=== PATIENT | female | born 1945 | race Caucasian/White ===

== ENCOUNTER → 2017-05-10 | Outpatient (CLI) | payer MEDICARE, OTHER | END | disposition home or self-care (01) | LOC: LAB 13:00 | DX: E34.0 Carcinoid syndrome (principal) | CPT/HCPCS: 36415 ==

== ENCOUNTER → 2017-06-05 | Outpatient (CLI) | payer MEDICARE, OTHER ==
[~2017-06-05] MED LIST: ALBU2.5V14 NEB; ALBU8.5H8 INH; AMLO10TA2 PO; ASPI325T8 PO; ATEN25TA PO; DIGO250T PO; FLUT1DIS IH; FURO-68 PO; IOHEXOL 240 MG/ML 50ML VIAL. PO ONE; LEVO75TA5 PO; POTA20TA82 PO; SIMV40TA3 PO; WARF-78 PO; WARF4TAB7 PO
--- NOTE | 2017-06-05 12:27 | RAD ---
Examination: CT chest abdomen pelvis without contrast History: History of right lower quadrant abdominal pain, history of carcinoid Comparison: 11/16/2008 Technique: CT images of the chest abdomen pelvis were performed without contrast. Coronal and sagittal reformats are performed. PQRS Compliance Statement: One or more of the following individualized dose reduction techniques were utilized for this examination: 1. Automated exposure control 2. Adjustment of the mA and/or kV according to patient size 3. Use of iterative reconstruction technique. Findings: Moderate cardiomegaly. Coronary artery calcifications identified. Subcentimeter mediastinal lymph nodes are identified. There is a 8 mm nodule identified in the right upper lobe of the lung best visualized on series 2 image #11. There is moderate consolidation changes identified in the right upper lobe of the lung inferiorly with the air bronchograms with patchy airspace opacities identified in the right upper lobe, right lower lobe of the lungs. There is somewhat mild thinning of the bronchial branches to the right upper lobe of the lung. Foci of fall airspace opacities identified in the right lower lobe of the lung measuring 1.5 cm and in the right upper lobe of the lung measuring 1.5 cm demonstrates somewhat minimal irregular borders. Mild thickening of the right lung pleura at its base. Faint airspace opacities identified in the left upper lobe of the lung. No evidence of free air identified in the abdomen. The visualized noncontrasted liver, demonstrates mild hepatomegaly. The visualized spleen, adrenals grossly appears unremarkable. The stomach is mildly distended. The visualized pancreas grossly appears unremarkable. The small bowel is nondilated. Feces and gas noted in the colon. Multiple sigmoid colon diverticulosis. Mild aortic atherosclerosis. Moderate degenerative changes thoracic spine. There is a 1.1 cm tiny density identified in the inferior aspect of the anterior portion of the right kidney measuring 32 Hounsfield units could be hyperdense cyst or lesion. Evaluation of the solid organs is limited due to lack of IV contrast. Impression: 1. Right upper lobe lung consolidation with air bronchograms with patchy airspace opacities identified in the right upper lobe, right lower lobe and in the left upper lobe of the lung as described above likely pneumonia or atelectasis. Other possibility for the right upper lobe consolidation could be postobstructive atelectasis. Correlate clinically. Follow-up to resolution. 2. 8 mm nodule identified in the right upper lobe of the lung best visualized on series 2 image #11. Follow-up per Vickie[employer]ner Society guidelines with the follow-up CT in 3-6 months. 3. Multiple sigmoid colon diverticula. 4. 1.1 cm density identified in the right kidney anteriorly into the inferior portion could be a hyperdense cyst. Follow-up ultrasound can be considered.
== END | disposition home or self-care (01) ==
LOC: CT 09:00
PROVIDERS: ATTEND Internal Medicine Critical Care Medicine
DX: K57.30 Diverticulosis of large intestine without perforation or abscess without bleeding (principal); I70.0 Atherosclerosis of aorta; R91.8 Other nonspecific abnormal finding of lung field
CPT/HCPCS: 71250; 74176; Q9966

== ENCOUNTER → 2017-08-25 | Outpatient (CLI) | payer MEDICARE, OTHER | END | disposition home or self-care (01) | LOC: CT 11:06 | DX: I25.10 Atherosclerotic heart disease of native coronary artery without angina pectoris (principal); I51.7 Cardiomegaly; N64.89 Other specified disorders of breast; R91.8 Other nonspecific abnormal finding of lung field | CPT/HCPCS: 71250 ==

== ENCOUNTER 2017-09-29 22:38 | Emergency (ER) | payer MEDICARE, OTHER | END 2017-09-30 00:42 | disposition home or self-care (01) | LOC: ER 09-30 00:42 | DX: S00.03XA Contusion of scalp, initial encounter (principal); I48.91 Unspecified atrial fibrillation; J45.909 Unspecified asthma, uncomplicated; I27.20 Pulmonary hypertension, unspecified; M32.9 Systemic lupus erythematosus, unspecified; Z79.01 Long term (current) use of anticoagulants; Z88.0 Allergy status to penicillin; Z88.2 Allergy status to sulfonamides; Z88.6 Allergy status to analgesic agent; Z88.8 Allergy status to other drugs, medicaments and biological substances; W07.XXXA Fall from chair, initial encounter; Y93.84 Activity, sleeping; Y99.8 Other external cause status; Y92.89 Other specified places as the place of occurrence of the external cause | CPT/HCPCS: 70450; 99284-25 ==

== ENCOUNTER → 2018-04-18 | Outpatient (CLI) | payer MEDICARE, OTHER ==
[2017-12-23 12:09] VITALS: BP 157/67
[~2018-04-18] MED LIST changes: -AMLO10TA2 PO; +AMLO10TA6 PO; -IOHEXOL 240 MG/ML 50ML VIAL. PO ONE; +MULT1TAB52 PO; +VITAMIND PO; +WARF2.5T83 PO; +WARF2TAB PO; +WARF4TAB64 PO; -WARF4TAB7 PO
--- NOTE | 2018-04-18 15:31 | RAD ---
DATE: April 18, 2018 EXAM: MAMMO JERED DIAG BILAT, BREAST LEFT SONOGRAM HISTORY: History of left breast lump. Patient had bruising of the left breast 6 months ago but the lump has remained even though the bruising has cleared. Patient is on Coumadin. COMPARISON: March 04, 2011 This study was interpreted with the benefit of Computerized Aided Detection (CAD). 2-D digital mammographic views of both breasts were performed in the CC and MLO projections. 3-D digital tomosynthesis images of both breasts were performed in the CC and MLO projections and reviewed on a computer workstation. FINDINGS: Breast Density: SCATTERED The breast parenchyma shows scattered fibroglandular densities. Breast parenchyma level B. The right breast is stable. In the area of the palpable lump of the upper-outer quadrant of the left breast marked by a skin marker, an underlying dense asymmetric nodule is present measuring 1.8 cm in size. This is located 3.5 cm from the nipple. No clustering of pleomorphic microcalcifications are evident. Posterior to this nodule, a biopsy clip of the left breast is evident. However, this nodule is new since the previous mammogram. LEFT BREAST SONOGRAPHY: High-resolution sonography of the upper outer quadrant of the left breast was performed. At the 12:00 position 4 cm from the nipple, a bilobed hypoechoic heterogeneous solid nodule is seen measuring 2.2 cm in size with irregular borders. Internal color Doppler flow is evident. Therefore, this does not represent a hematoma. Sonography of the left axillary region was performed and no abnormal lymph node is seen. IMPRESSION: Palpable lump of the left breast corresponds to a 2.2 cm solid irregular nodule. Therefore, ultrasound-guided core biopsy is recommended. Note-I discussed the finding and recommendation for biopsy with the patient after completion of the study on April 18, 2018. I told the patient to call her physician's office for further instructions. In addition, I called the office for Dr. Jojo Irby after completion of the examination on April 18, 2018 and the law office receptionist said she will page the nurse for Dr. Irby. BI-RADS CATEGORY: 5 HIGHLY SUGGESTIVE MALIGNANCY RECOMMENDED FOLLOW-UP: BIO BIOPSY RECOMMENDED PQRS compliance statement: Patient information was entered into a reminder system with a target due date now for the imaging guided procedure. Mammography is a sensitive method for finding small breast cancers, but it does not detect them all and is not a substitute for careful clinical examination. A negative mammogram does not negate a clinically suspicious finding and should not result in delay in biopsying a clinically suspicious abnormality. "Our facility is accredited by the [employer] Mammography Program." The patient's breast density may affect the ability of mammography to detect breast cancer. There are 4 categories of breast density, A, B, C and D. Breast density A means that most of the breast tissue is replaced with adipose tissue and therefore is not dense. Breast density B means that the breast tissue is mildly dense and scattered. Breast density C means that the breast tissue is heterogeneously dense. Breast density D means that the breast tissue is very dense. Breast densities especially C and D may decrease the sensitivity of mammography to detect breast cancer. Therefore, the patient may benefit from 3-D breast mammography (3D breast tomography) as a part of their screening mammogram. Insurance may or may not pay for this additional imaging. The patient's breast density based on today's mammogram is category B.
== END | disposition home or self-care (01) ==
LOC: MAMMO 13:13
PROVIDERS: ATTEND Internal Medicine Hematology & Oncology
DX: D59.1 Other autoimmune hemolytic anemias (principal); N63.21 Unspecified lump in the left breast, upper outer quadrant; R92.8 Other abnormal and inconclusive findings on diagnostic imaging of breast; R76.8 Other specified abnormal immunological findings in serum; E61.1 Iron deficiency
CPT/HCPCS: 76641; 77066; G0279; 77062

== ENCOUNTER → 2018-05-08 | Outpatient (CLI) | payer MEDICARE, OTHER ==
[2017-12-23 12:09] VITALS: BP 157/67
--- NOTE | 2018-05-10 09:08 | PATHOLOGY ---
[facility] Accession Number: [id number] . 01 Material submitted: . LEFT BREAST . 01 Clinical history: . Left breast mass . 02 Diagnosis: Breast tissue, left breast mass needle biopsies: - Fibroadenoma. - Focal scarring of breast with hemosiderin laden macrophages, focal dystrophic calcification, and focal foreign body giant cell reaction. LBQ/05/09/2018 . 02 Comment: There is no evidence of malignancy. (JPM/db; 05/09/2018) . 02 Electronically signed: . Ric Uribe MD, Pathologist NPI- [id number] . 01 Gross description: . The specimen is received in formalin, labeled "Elba Sheehan, left breast mass" are several guerrero-white fibrofatty cores and fragments ranging from 0.2 cm up to 1.5 cm in greatest dimension and measuring 1.5 x 0.6 x 0.1 cm in aggregate. The specimen is entirely submitted in A1-A3. Specimen excised at: 0935 on 05/18/18, placed in formalin: 0940 on 05/18/18, formalin exposure: 14 hours. ([facility]; 05/08/2018) [facility]S . 02 Pathologist provided ICD-10: D24.2 . 02 CPT . 141014 Specimen Comment: A courtesy copy of this report has been sent to Specimen Comment: [phone], , . Specimen Comment: Report sent to , DR DINERO / DR MEJIA Specimen Comment: A duplicate report has been generated due to demographic updates. Performed at: [address], [place] [id number] MD Aron Harknis MD Phone: [phone] Performed at: [address] [id number] MD Ric Uribe MD Phone: [phone]
--- NOTE | 2018-05-11 09:12 | RAD ---
Ultrasound-guided left breast biopsy, 05/08/2018: History: Suspicious breast nodule Previous studies demonstrated a bilobed hypoechoic process at the 12:00 location in the left breast. Under local anesthesia, aseptic conditions and sonographic guidance a total of six 14 gauge core samples were obtained from this lesion via a lateral approach. We targeted both the medial and lateral aspects of this bilobed process. The materials were sent to pathology for evaluation. A biopsy marker was deposited at the biopsy site. Hemostasis was then obtained. Two-view postprocedural mammograms were then performed to document position of the current S-shaped biopsy marker. It lies along the posteromedial margin of the biopsied lesion. Note is made that there is an older cylindrical biopsy marker located just posterior to this process. Reportedly that biopsy yielded findings of a fibroadenoma. The patient tolerated the procedure well and left the department in good condition. The subsequent pathology report indicated the presence of a fibroadenoma. This is considered to be a concordant finding.
== END | disposition home or self-care (01) ==
LOC: US 08:17
PROVIDERS: ATTEND Internal Medicine Hematology & Oncology
DX: D24.2 Benign neoplasm of left breast (principal); L92.3 Foreign body granuloma of the skin and subcutaneous tissue; Z88.0 Allergy status to penicillin; Z88.2 Allergy status to sulfonamides; Z88.8 Allergy status to other drugs, medicaments and biological substances; Z90.710 Acquired absence of both cervix and uterus; Z98.890 Other specified postprocedural states
CPT/HCPCS: 19083; 77065; 88305; C1713; 19081; 76942

== ENCOUNTER 2018-06-17 15:20 | Emergency (ER) | payer MEDICARE, OTHER ==
[~2018-06-17] VITALS: Ht 152.4 cm; Wt 103.4 kg
[2018-06-17] MEDS ORDERED: OXYMETAZOLINE 0.05% NASAL SPRAY 30ML BOTTLE. NS ONE (15:45)
--- NOTE | 2018-06-17 16:12 | PHYS DOC ---
Past Medical History Past Medical History: A-Fib, Anemia, Asthma, Pneumonia, Sinusitis Additional Past Medical Histor: AUTO-IMMUNE DISORDER, LUPUS FACTOR, CARDIO- PULM HTN Past Surgical History: Cholecystectomy, Hysterectomy Additional Past Surgical Histo: HERNIA REPAIR Alcohol Use: None Drug Use: None Adult General Chief Complaint Chief Complaint: NOSEBLEED HPI HPI Patient is a 72 year old female with history of A. fib currently on Coumadin 4.5 mg who presents today complaining of nose bleeding that began around 1:30 PM today. Patient denies any trauma. She states she has history of nosebleeds due to Coumadin, dry air, and multiple other factors. Review of Systems Review of Systems Constitutional: Denies fever or chills [] Eyes: Denies change in visual acuity, redness, or eye pain [] HENT: Reports nose bleeding. Denies nasal congestion or sore throat [] Respiratory: Denies cough or shortness of breath [] Cardiovascular: No additional information not addressed in HPI [] GI: Denies abdominal pain, nausea, vomiting, bloody stools or diarrhea [] : Denies dysuria or hematuria [] Musculoskeletal: Denies back pain or joint pain [] Integument: Denies rash or skin lesions [] Neurologic: Denies headache, focal weakness or sensory changes [] All other systems were reviewed and found to be within normal limits, except as documented in this note. Current Medications Current Medications Current Medications Medications (Trade) Dose Ordered Sig/Carlie Start Time Stop Time Status Last Admin Dose Admin Oxymetazoline HCl (Afrin) 2 spray 1X ONCE 06/17/18 15:45 06/17/18 15:48 DC 06/17/18 16:04 2 SPRAY Allergies Allergies Allergies Coded Allergies Type Severity Reaction Last Updated Verified SAI Inhibitors Allergy Intermediate 06/07/17 Yes NSAIDS (Non-Steroidal Anti-Inflamma Allergy Intermediate 06/07/17 Yes Penicillins Allergy Intermediate 06/07/17 Yes Sulfa (Sulfonamide Antibiotics) Allergy Intermediate 06/07/17 Yes lisinopril Allergy Intermediate 06/07/17 Yes Physical Exam Physical Exam Constitutional: Well developed, well nourished, no acute distress, non-toxic appearance. [] HENT: Normocephalic, atraumatic, bilateral external ears normal, oropharynx moist, no oral exudates, No active bleeding noted on physical exam. Right nasal cavity appears to have redness consistent with recent nosebleed. Left nasal cavity appears normal. Eyes: PERRLA, EOMI, conjunctiva normal, no discharge. [] Neck: Normal range of motion, no tenderness, supple, no stridor. [] Cardiovascular:Heart rate regular rhythm, no murmur [] Lungs & Thorax: Bilateral breath sounds clear to auscultation [] Abdomen: Bowel sounds normal, soft, no tenderness, no masses, no pulsatile masses. [] Skin: Warm, dry, no erythema, no rash. [] Back: No tenderness, no CVA tenderness. [] Extremities: No tenderness, no cyanosis, no clubbing, ROM intact, no edema. [] Neurologic: Alert and oriented X 3, normal motor function, normal sensory function, no focal deficits noted. [] Psychologic: Affect normal, judgement normal, mood normal. [] Current Patient Data Vital Signs Vital Signs Date Time Temp Pulse Resp B/P (MAP) Pulse Ox O2 Delivery O2 Flow Rate FiO2 06/17/18 17:00 58 159/70 (99) 96 Room Air 06/17/18 15:30 98.1 20 98.1 Lab Values Laboratory Tests Test 06/17/18 16:05 White Blood Count 5.5 x10^3/uL (4.0-11.0) Red Blood Count 3.93 x10^6/uL (3.50-5.40) Hemoglobin 10.8 g/dL (12.0-15.5) L Hematocrit 32.2 % (36.0-47.0) L Mean Corpuscular Volume 82 fL (79-100) Mean Corpuscular Hemoglobin 28 pg (25-35) Mean Corpuscular Hemoglobin Concent 34 g/dL (31-37) Red Cell Distribution Width 16.8 % (11.5-14.5) H Platelet Count 206 x10^3/uL (140-400) Neutrophils (%) (Auto) 65 % (31-73) Lymphocytes (%) (Auto) 20 % (24-48) L Monocytes (%) (Auto) 9 % (0-9) Eosinophils (%) (Auto) 4 % (0-3) H Basophils (%) (Auto) 1 % (0-3) Neutrophils # (Auto) 3.6 x10^3uL (1.8-7.7) Lymphocytes # (Auto) 1.1 x10^3/uL (1.0-4.8) Monocytes # (Auto) 0.5 x10^3/uL (0.0-1.1) Eosinophils # (Auto) 0.2 x10^3/uL (0.0-0.7) Basophils # (Auto) 0.1 x10^3/uL (0.0-0.2) Prothrombin Time 22.9 SEC (11.7-14.0) H Prothrombin Time INR 2.1 (0.8-1.1) H PTT 83 SEC (24-38) H Laboratory Tests 06/17/18 16:05 EKG EKG [] Radiology/Procedures Radiology/Procedures [] Course & Med Decision Making Course & Med Decision Making Pertinent Labs and Imaging studies reviewed. (See chart for details) This is a 72-year-old female patient on Coumadin presenting today for nose bleeding that began at 1:30. No active bleeding noted on arrival to the ED, Afrin was sprayed in the nasal cavities. I personally re-evaluated patient after the use of Afrin, no active bleeding was noted. INR is 2.1. Hemoglobin 10.8, hematocrit 32.2, this is around patient's baseline. Vitals temperature 98.1, heart rate 68, respiration 20 on room air, blood pressure 164/73 O2 sats 98%. Patient was discharged to home provided return precautions and discharged in stable condition. She has an appointment for INR tomorrow with her PCP. Her distribution technician is Dr. Kc, patient was provided another distribution technician for follow-up with. Staff Physician Addendum: I was working in the ER during the course of this patient's visit. I was available for consultation as needed, but I was not directly involved in the care of this patient. Dragon Disclaimer Dragon Disclaimer This electronic medical record was generated, in whole or in part, using a voice recognition dictation system. Departure Departure Impression: Primary Impression: Epistaxis Disposition: HOME, SELF-CARE Condition: STABLE Referrals: BECKY MEJIA MD (PCP) SAL GARY MD follow up in the next one week with the provided distribution technician Patient Instructions: Nosebleed, [id number] Additional Instructions: You were evaluated in the emergency room for nose bleeding. Continue following up with your own primary care doctor and distribution technician. Come back to the ED at any point symptoms worsen. OSWALD BASSETT APRN Jun 17, 2018 16:12 DONNA JUNG MD Jun 20, 2018 07:56
[2018-06-17 16:19] LABS: BASO # 0.1 x10^3/uL (0.0-0.2); BASO % 1 % (0-3); EOS # 0.2 x10^3/uL (0.0-0.7); EOS % 4 % (0-3); HEMATOCRIT 32.2 % (36.0-47.0); HEMOGLOBIN 10.8 g/dL (12.0-15.5); LYMPH # 1.1 x10^3/uL (1.0-4.8); LYMPH % 20 % (24-48); MEAN CORPUSCULAR HEMOGLOBIN 28 pg (25-35); MEAN CORPUSCULAR HGB CONC 34 g/dL (31-37); MEAN CORPUSCULAR VOLUME 82 fL (79-100); MONO # 0.5 x10^3/uL (0.0-1.1); MONO % 9 % (0-9); NEUT # 3.6 x10^3uL (1.8-7.7); NEUT % 65 % (31-73); PLATELET COUNT 206 x10^3/uL (140-400); RED BLOOD COUNT 3.93 x10^6/uL (3.50-5.40); RED CELL DISTRIBUTION WIDTH 16.8 % (11.5-14.5); WHITE BLOOD COUNT 5.5 x10^3/uL (4.0-11.0)
[2018-06-17 16:29] LABS: PROTHROMBIN TIME PATIENT 22.9 SEC (11.7-14.0)
[2018-06-17 17:00] VITALS: BP 159/70
== END 2018-06-17 17:00 | disposition home or self-care (01) ==
LOC: ER 15:20
DX: R04.0 Epistaxis (principal); J45.909 Unspecified asthma, uncomplicated; Z90.49 Acquired absence of other specified parts of digestive tract; Z90.710 Acquired absence of both cervix and uterus; Z88.0 Allergy status to penicillin; Z88.8 Allergy status to other drugs, medicaments and biological substances; Z88.2 Allergy status to sulfonamides
CPT/HCPCS: 36415; 85025; 85610; 85730; 99283

== ENCOUNTER → 2018-08-03 | Outpatient (CLI) | payer MEDICARE, OTHER ==
[~2018-08-03] MED LIST changes: +ALBU2.5V8 INH; -ALBU8.5H8 INH; +GADOBUTROL 10 MMOL/10 ML VIAL IV ONE
[2018-08-03 14:04] LABS: CREATININE 0.9 mg/dL (0.6-1.0); GFR 61.7
--- NOTE | 2018-08-03 14:30 | NUR ---
pt monitored by RN during MRI. HR 85, SPo2 95. Pt tolerated well
--- NOTE | 2018-08-03 15:17 | RAD ---
MRI Brain with and without contrast History: Right-sided hearing loss, vertigo Technique: Multiplanar, multi sequential pre and postcontrast MR imaging was performed of the brain. Comparison: None Findings: There is no evidence of recent infarct or cytotoxic edema. The ventricles, sulci, and cisterns are within normal limits in size and configuration. There is no significant midline shift, intraaxial mass effect, or focal abnormal extra-axial fluid collection. There is minimal T2 and FLAIR hyperintense signal abnormality of the supratentorial white matter bilaterally greatest of the parietal lobes and periatrial white matter. There is no nodular parenchymal or leptomeningeal enhancement. There is preservation of the major intracranial flow-voids at the skull base. There is mild cerebral tonsillar ectopia projecting about 4 mm inferior to the foramen magnum. There is no significant abnormality of the pineal gland. There is mostly empty sella, no significant increased CSF signal of the optic nerve sheaths. There has been lens surgery bilaterally. There is mild bilateral ethmoid air cell mucosal thickening. There are small air-fluid levels in the bilateral maxillary sinuses. There is moderate to severe left maxillary sinus mucosal thickening with associated mucous retention cyst, [id number] right maxillary sinus mucosal thickening. There is minimal fluid dependently in the pharynx. The mastoid air cells are aerated. There is preserved marrow signal of the clivus. Poorly evaluated this exam, there is appearance of diffuse decreased T1 signal of the C3 vertebral body without osseous retropulsion, associated enhancement as seen on the limited coronal images through this region. There is no enhancing mass of the cerebellopontine angles or internal auditory canals. There is some subtle relative increased T1 signal associated with the right vestibule as well as near confluence of the semicircular canals, not associated with convincing enhancement and appearance asymmetric with the left. There is a tiny 3 mm focus of nonspecific enhancement left parietal calvarium. Impression: 1. There is paranasal sinus mucosal thickening as stated and also air-fluid levels in the bilateral maxillary sinuses which may be seen with acute sinusitis. 2. Minimal T2 and FLAIR hyperintense abnormality of the supratentorial white matter is probably due to chronic microvascular ischemic disease in a patient of this age. There are small old lacunar infarcts of the bilateral cerebellum greater on the right. There is no abnormal intracranial enhancement. 3. There is mild cerebellar tonsillar ectopia. There is empty sella may be incidental. 4. Poorly characterized on this exam, there is likely edema of the C3 vertebral body with associated enhancement as can be seen with marrow replacing lesion, sequela of recent compression injury less typical at this level although there is mild inferior endplate concavity. There is a tiny focus of nonspecific enhancement of the left parietal calvarium. 5. There is some subtle increased T1 signal associated with right vestibule and near confluence of the semicircular canals not associated with convincing enhancement, consideration of sequela of labyrinthitis as findings asymmetric with the left. Electronically signed by: Gregorio Cline MD (08/03/2018 3:13 PM) [facility]
== END | disposition home or self-care (01) ==
LOC: MRI 13:45
PROVIDERS: ATTEND Otolaryngology
DX: H91.21 Sudden idiopathic hearing loss, right ear (principal); R42 Dizziness and giddiness
CPT/HCPCS: 36415; 70553; 82565; A9585

== ENCOUNTER → 2018-09-17 | Outpatient (CLI) | payer MEDICARE, OTHER ==
[~2018-09-17] MED LIST changes: -AMLO10TA6 PO; +AMLO10TA8 PO; -GADOBUTROL 10 MMOL/10 ML VIAL IV ONE
--- NOTE | 2018-09-17 11:01 | CARD ---
MR#: [id number] Date of Study: 09/17/2018 Ordering Physician: KIM GOLD, Referring Physician: KIM GOLD, Tech: Mary Beltran JUAN ALBERTO APPROVED REPORT EXAM: Two-dimensional and M-mode echocardiogram with Doppler and color Doppler. Other Information Quality : Good Rhythm : Atrial Fibrillation INDICATION Aortic Valve Disease Surgery/Intervention Pacemaker: 2D DIMENSIONS RVDd4.3 (2.9-3.5cm)Left Atrium(2D)4.9 (1.6-4.0cm) IVSd1.5 (0.7-1.1cm)Aortic Root(2D)2.7 (2.0-3.7cm) LVDd4.9 (3.9-5.9cm)LVOT Diameter2.0 (1.8-2.4cm) PWd1.5 (0.7-1.1cm)LVDs3.5 (2.5-4.0cm) FS (%) 29.5 %SV63.5 ml LVEF(%)55.0 (>50%) Aortic Valve AoV Peak Brendan.315.1cm/sAoV VTI66.6cm AO Peak GR.39.7mmHgLVOT Peak Brendan.140.1cm/s AO Mean GR.21mmHgAVA (VMAX)1.46cm2 KENDELL (VTI)1.00tq5AZ P 1/2 Fger951mv Mitral Valve MV E Ufbhxkek202.3cm/sMV DECEL ESOH497fk MV A Eyryajtt06.2cm/sE/A Ratio3.2 Tricuspid Valve TR P. Gwlxluny726vy/sRAP PRZLQMEF80owWr TR Peak Gr.87waBxCYUP92yhYq Pulmonary Vein S1 Dqcowzgr32.1cm/sD2 Fhsmgngt20.4cm/s LEFT VENTRICLE The left ventricle is normal size. There is mild concentric left ventricular hypertrophy. Left ventri harman systolic function is low normal. EF 50% Apical motion consistent with pacemaker activation. Other sanchez, global hypokinesis. RIGHT VENTRICLE The right ventricle is mildly dilated. The right ventricular systolic function is normal. There is a pacemaker lead in the right ventricle. ATRIA The left atrium is mildly dilated. The right atrium is mildly dilated. A pacemaker is seen in the rig ht atrium consistent with history. The interatrial septum is intact with no evidence for an atrial se ptal defect or patent foramen ovale as noted on 2-D or Doppler imaging. AORTIC VALVE The aortic valve is not well visualized but does not appear to be opening normally. Doppler and Color Flow revealed mild aortic regurgitation. Calculated aortic valve area is 1.7 cm2 with maximum pressu re gradient of 40 mmHg and mean pressure gradient of 21 mmHg. Doppler and color-flow analysis reveale d mild aortic stenosis. MITRAL VALVE The mitral valve is calcified but opens well. Posterior mitral annular calcification is mild. There i s no evidence of mitral valve prolapse. There is no mitral valve stenosis. Doppler and Color-flow rev ealed mild mitral regurgitation. TRICUSPID VALVE The tricuspid valve is normal in structure and function. Doppler and Color Flow revealed moderate tri cuspid regurgitation. There is severe pulmonary hypertension. The PA pressure was estimated at 70 mmH g. There is no tricuspid valve stenosis. PULMONIC VALVE The pulmonic valve is not well visualized. Doppler and Color Flow revealed mild pulmonic valvular reg urgitation. There is no pulmonic valvular stenosis. GREAT VESSELS The aortic root is normal in size. The ascending aorta is normal in size. The IVC is dilated and mckenna apses <50% with inspiration. PERICARDIAL EFFUSION There is a trace circumferential pericardial effusion. Critical Notification Critical Value: No <Conclusion> Left ventricle systolic function is low normal. EF 50% Apical motion consistent with pacemaker activation. Otherwise, global hypokinesis. There is a pacemaker lead in the right ventricle. Calculated aortic valve area is 1.7 cm2 with maximum pressure gradient of 40 mmHg and mean pressure g radient of 21 mmHg. Doppler and color-flow analysis revealed mild aortic stenosis. Doppler and Color Flow revealed mild aortic regurgitation. Doppler and Color Flow revealed moderate tricuspid regurgitation. There is severe pulmonary hypertens ion. The PA pressure was estimated at 70 mmHg. Signed by : Kim Gold, Electronically Approved : 09/17/2018 11:00:17
== END | disposition home or self-care (01) ==
LOC: ECHO 07:52
PROVIDERS: ATTEND Internal Medicine Cardiovascular Disease
DX: I08.8 Other rheumatic multiple valve diseases (principal); I27.20 Pulmonary hypertension, unspecified; I48.91 Unspecified atrial fibrillation
CPT/HCPCS: 93306

== ENCOUNTER → 2018-09-21 | Outpatient (CLI) | payer MEDICARE, OTHER ==
--- NOTE | 2018-09-21 09:57 | RAD ---
PQRS Compliance statement: One or more of the following individualized dose reduction techniques were utilized for this examination: 1. Automated exposure control. 2. Adjustment of the mA and/or kV according to patient size. 3. Use of iterative reconstruction technique. Indication:F/U LUNG NODULE PREV SENT TECHNIQUE: CT chest without IV contrast with multiplanar reformats. COMPARISON: 08/25/2017 FINDINGS: Left chest wall cardiac pacer is seen with its leads in the heart. Heart is moderately enlarged in size. No pericardial or pleural effusion. No enlarged axillary or mediastinal adenopathy. Evaluation of hilar lymphadenopathy is limited due to lack of IV contrast. Trace right pleural effusion. Central airways are patent. 4 mm nodule is seen in the right lower lobe (series 3 image 152). Motion artifact is seen limiting optimal evaluation. Stable 3 mm nodule in the left lung apex (series 3 image 54). Visualized noncontrast appearance of the liver, spleen, within normal limits. Stable 1.4 cm nodule in the left adrenal gland compatible with adenoma. Stable partially exophytic 1.5 cm lesion in the posterior interpolar left kidney likely minimally corticated cyst. Attention on follow-up. Stable 1.4 cm nodule in the left lower breast. No suspicious bony lesion. IMPRESSION: Motion artifact in the lungs limiting optimal evaluation. 1. Stable left apical nodule. New right lower lobe nodule. Follow-up CT chest in 6 month recommended. 2. Stable left lower outer quadrant breast nodule. Correlate with mammography. Electronically signed by: Bruce Medina DO (09/21/2018 9:54 AM) [facility]
== END | disposition home or self-care (01) ==
LOC: CT 08:59
PROVIDERS: ATTEND Internal Medicine Critical Care Medicine
DX: R91.1 Solitary pulmonary nodule (principal); R91.8 Other nonspecific abnormal finding of lung field; I51.7 Cardiomegaly
CPT/HCPCS: 71250

== ENCOUNTER 2019-04-07 12:11 | Emergency (ER) | payer MEDICARE, OTHER ==
[~2019-04-07] VITALS: Ht 152.4 cm; Wt 103.4 kg
[2019-04-07 13:00] VITALS: BP 139/65
--- NOTE | 2019-04-07 13:56 | RAD ---
RIBS LEFT AND PA CHEST History: Fall. Pain. Technique: PA view the chest and 2 additional views of the left ribs. Comparison: CT chest September 21, 2018 Findings: Cardiomegaly. Left sided pacemaker, unchanged. No pneumothorax. Patchy right basilar opacity. No pleural effusion. No displaced rib fractures. Impression: 1. Patchy right basilar opacity, most likely subsegmental atelectasis. 2. No displaced rib fractures. 3. Cardiomegaly. Electronically signed by: Rahul Campos DO (04/07/2019 1:53 PM) [facility]
--- NOTE | 2019-04-07 14:07 | RAD ---
CT scan of the head without contrast 04/07/2019 Clinical History: Fall. On Coumadin. Technique: Unenhanced, contiguous, 5 mm axial sections were obtained through the head. One or more of the following individualized dose reduction techniques were utilized for this study: 1. Automated exposure control. 2. Adjustment of the mA and/or kV according to patient size. 3. Use of iterative reconstruction technique. Findings: Comparison study is dated 09/29/2017. There is mild generalized parenchymal atrophy. Areas of decreased attenuation are seen within the periventricular and subcortical white matter of both cerebral hemispheres consistent with areas of mild small vessel ischemic disease. No acute parenchymal abnormality is seen. No extra-axial fluid collection is noted. No skull fracture is seen. Impression: No acute intracranial abnormality is seen. Electronically signed by: Panfilo Araya MD (04/07/2019 2:03 PM) [facility]
--- NOTE | 2019-04-07 14:57 | PHYS DOC ---
Past Medical History Past Medical History: A-Fib, Anemia, Asthma, Pneumonia, Sinusitis Additional Past Medical Histor: AUTO-IMMUNE DISORDER, LUPUS FACTOR, CARDIO-PULM HTN, PACEMAKER,HERNIA,HEART Past Surgical History: Cholecystectomy, Hysterectomy, Other Additional Past Surgical Histo: HERNIA REPAIR Alcohol Use: None Drug Use: None Adult General Chief Complaint Chief Complaint: RIB PAIN [facility] HPI Patient is a 73 year old female with history of atrial fibrillation on Coumadin who presents with complaining of a fall and injury to the chest wall. Patient states she had an accidental fall from a chair because of falling asleep and had a fall from the chair and had the pain and injury to left lateral chest that gradually getting worse. She complaining of shortness of breath when trying to taking deep breaths or cough and rated her pain a moderate pain. Patient states she has history of A. fib and taking Coumadin. Patient denies other injuries and loss of consciousness. Review of Systems Review of Systems Constitutional: Denies fever or chills [] Eyes: Denies change in visual acuity, redness, or eye pain [] HENT: Denies nasal congestion or sore throat [] Respiratory: Denies cough or shortness of breath [] Cardiovascular: No additional information not addressed in HPI [] GI: Denies abdominal pain, nausea, vomiting, bloody stools or diarrhea [] : Denies dysuria or hematuria [] Musculoskeletal: Denies back pain or joint pain [] Integument: Denies rash or skin lesions [] Neurologic: Denies headache, focal weakness or sensory changes [] Endocrine: Denies polyuria or polydipsia [] All other systems were reviewed and found to be within normal limits, except as documented in this note. Allergies Allergies Allergies Coded Allergies Type Severity Reaction Last Updated Verified SAI Inhibitors Allergy Intermediate 06/07/17 Yes NSAIDS (Non-Steroidal Anti-Inflamma Allergy Intermediate 06/07/17 Yes Penicillins Allergy Intermediate 06/07/17 Yes Sulfa (Sulfonamide Antibiotics) Allergy Intermediate 06/07/17 Yes lisinopril Allergy Intermediate 06/07/17 Yes Physical Exam Physical Exam Constitutional: Well developed, well nourished, mild distress, non-toxic appearance. [] HENT: Normocephalic, atraumatic. Eyes: PERRLA, EOMI, conjunctiva normal, no discharge. [] Neck: Normal range of motion, no tenderness, supple, no stridor. [] Cardiovascular: Irregularly irregular rhythm, no murmur [] Lungs & Thorax: Bilateral breath sounds clear to auscultation ,left lateral chest wall tenderness without subcutaneous emphysema or deformity. Abdomen: Bowel sounds normal, soft, no tenderness, no masses, no pulsatile masses. [] Skin: Warm, dry, no erythema, no rash. [] Back: No tenderness, no CVA tenderness. [] Extremities: No tenderness, no cyanosis, no clubbing, ROM intact, no edema. [] Neurologic: Alert and oriented X 3, no focal deficits noted. [] Psychologic: Affect normal, judgement normal, mood normal. [] Current Patient Data Vital Signs Vital Signs Date Time Temp Pulse Resp B/P (MAP) Pulse Ox O2 Delivery O2 Flow Rate FiO2 04/07/19 13:00 98.7 66 17 139/65 (89) 94 Room Air 98.7 EKG EKG EKG interpreted by me. EKG at 1258 showed atrial fibrillation at rate of 59, abnormal left axis deviation, nonspecific intraventricular block, no acute ST and T-wave abnormalities. Radiology/Procedures Radiology/Procedures [][facility] [address] [place] [address] IMAGING REPORT Signed PATIENT: MIGUEL ANGEL OLMOS ACCOUNT: [id number] : 1945 LOCATION: ER AGE: 73 SEX: F EXAM STATUS: REG ER ORD. PHYSICIAN: TINO ACOSTA MD REASON: fall PROCEDURE: RIBS LEFT AND PA CHEST RIBS LEFT AND PA CHEST History: Fall. Pain. Technique: PA view the chest and 2 additional views of the left ribs. Comparison: CT chest September 21, 2018 Findings: Cardiomegaly. Left sided pacemaker, unchanged. No pneumothorax. Patchy right basilar opacity. No pleural effusion. No displaced rib fractures. Impression: 1. Patchy right basilar opacity, most likely subsegmental atelectasis. 2. No displaced rib fractures. 3. Cardiomegaly. Electronically signed by: Rahul Campos DO (04/07/2019 1:53 PM) [facility] DICTATED and SIGNED BY: RAHUL CAMPOS DO DATE: 04/07/19 5568 [facility] [address] [place] [address] IMAGING REPORT Signed PATIENT: MIGUEL ANGEL OLMOS ACCOUNT: [id number] : 1945 LOCATION: ER AGE: 73 SEX: F EXAM STATUS: REG ER ORD. PHYSICIAN: TINO ACOSTA MD REASON: FALL YESTERDAY, HIT HEAD, ON COUMADIN PROCEDURE: CT HEAD WO CONTRAST CT scan of the head without contrast 04/07/2019 Clinical History: Fall. On Coumadin. Technique: Unenhanced, contiguous, 5 mm axial sections were obtained through the head. One or more of the following individualized dose reduction techniques were utilized for this study: 1. Automated exposure control. 2. Adjustment of the mA and/or kV according to patient size. 3. Use of iterative reconstruction technique. Findings: Comparison study is dated 09/29/2017. There is mild generalized parenchymal atrophy. Areas of decreased attenuation are seen within the periventricular and subcortical white matter of both cerebral hemispheres consistent with areas of mild small vessel ischemic disease. No acute parenchymal abnormality is seen. No extra-axial fluid collection is noted. No skull fracture is seen. Impression: No acute intracranial abnormality is seen. Electronically signed by: Panfilo Araya MD (04/07/2019 2:03 PM) [facility] DICTATED and SIGNED BY: PANFILO ARAYA MD DATE: 04/07/19 1403 Course & Med Decision Making Course & Med Decision Making Pertinent Imaging studies reviewed. (See chart for details) Evaluation of patient in ER showed 73-year-old female patient with a fall and injury to chest. Patient had chest wall tenderness without fracture. Patient didn't want to have pain medication for home. I've spoken with the patient and/or caregivers. I've explained the patient's condition, diagnosis and treatment plan based on information available to me at this time. I've answered the patient's and/or caregivers questions and addressed any concerns. The patient and/or caregivers have a good understanding the patient's diagnosis, condition and treatment plan as can be expected at this point. Vital signs have been stabilized. The patient's condition is stable for discharge from the emergency department. The patient will pursue further outpatient evaluation with her primary care provider or other designated consulting physician as outlined in the discharge instructions. Patient and/or caregivers are agreeable to this plan of care and follow-up instructions have been explained in detail. The patient and/or caregivers have received these instructions in written format and expressed understanding of these discharge instructions. The patient and her caregivers are aware that if any significant change in condition or worsening of symptoms should prompt him to immediately return to this of the closest emergency department. If an emergent department is not readily available I would encourage him to call 911. Dragon Disclaimer Dragon Disclaimer This electronic medical record was generated, in whole or in part, using a voice recognition dictation system. Departure Departure Impression: Primary Impression: Chest wall injury Additional Impression: Chronic atrial fibrillation Disposition: HOME, SELF-CARE (at 1456) Condition: STABLE Referrals: BECKY MEJIA MD (PCP) Patient Instructions: Chest Contusion, Chest Wall Pain, Rib Contusion Additional Instructions: Apply ice on the affected area Follow-up with your primary care physician in 3-5 days Return to ER if not getting better Problem Qualifiers Primary Impression: Chest wall injury Encounter type: initial encounter Qualified Codes: S29.9XXA - Unspecified injury of thorax, initial encounter TINO ACOSTA MD Apr 07, 2019 14:57
--- NOTE | 2019-04-08 07:11 | EKG ---
[facility] [address] [place] [address] Test Date: 2019-04-07 Test Time: 12:58:52 Pat Name: MIGUEL ANGEL OLMOS Department: Room: Gender: F Cardio Clinician: : 1945 Requested By: TINO ACOSTA Order Number: [id number] Reading MD: Measurements Intervals Bruce Rate: 58 P: TX: QRS: -67 QRSD: 200 T: 116 QT: 428 QTc: 423 Interpretive Statements ATRIAL FIBRILLATION ABNORMAL LEFT AXIS DEVIATION NON SPECIFIC INTRAVENTRICULAR BLOCK QRS(T) CONTOUR ABNORMALITY CONSISTENT WITH ANTERIOR INFARCT POSSIBLY RECENT CONSISTENT WITH INFERIOR INFARCT POSSIBLY RECENT ABNORMAL ECG No previous ECG available for comparison
== END 2019-04-07 15:11 | disposition home or self-care (01) ==
LOC: ER 12:11
DX: S29.8XXA Other specified injuries of thorax, initial encounter (principal); I48.20 Chronic atrial fibrillation, unspecified; J45.909 Unspecified asthma, uncomplicated; I27.20 Pulmonary hypertension, unspecified; Z95.0 Presence of cardiac pacemaker; Z90.49 Acquired absence of other specified parts of digestive tract; Z90.710 Acquired absence of both cervix and uterus; Z79.01 Long term (current) use of anticoagulants; Z88.8 Allergy status to other drugs, medicaments and biological substances; Z88.0 Allergy status to penicillin; Z88.2 Allergy status to sulfonamides; W07.XXXA Fall from chair, initial encounter; Y93.89 Activity, other specified; Y92.89 Other specified places as the place of occurrence of the external cause; Y99.8 Other external cause status
CPT/HCPCS: 70450; 71101; 93005; 99284

== ENCOUNTER → 2019-05-13 | Outpatient (CLI) | payer MEDICARE, OTHER ==
[~2019-05-13] MED LIST changes: +SIMV40TA18 PO; -SIMV40TA3 PO
--- NOTE | 2019-05-14 13:47 | RAD ---
DATE: 05/13/2019 EXAM: MAMMO JERED SCREENING BILATERAL HISTORY: Routine screening. Benign left breast biopsy. COMPARISON: 03/04/2011, 04/18/2018 mammographic exams This study was interpreted with the benefit of Computerized Aided Detection (CAD). Breast Density: SCATTERED The breast parenchyma shows scattered fibroglandular densities. Breast parenchyma level B. FINDINGS: There are 2 biopsy clip markers involving the left upper-outer breast. No suspicious calcification, masses, or distortion. Vascular calcifications are present. IMPRESSION: Stable BI-RADS CATEGORY: 1 NEGATIVE RECOMMENDED FOLLOW-UP: 12M 12 MONTH FOLLOW-UP PQRS compliance statement: Patient information was entered into a reminder system with a target due date for the next mammogram. Mammography is a sensitive method for finding small breast cancers, but it does not detect them all and is not a substitute for careful clinical examination. A negative mammogram does not negate a clinically suspicious finding and should not result in delay in biopsying a clinically suspicious abnormality. "Our facility is accredited by the [employer] Mammography Program."
== END | disposition home or self-care (01) ==
LOC: MAMMO 12:29
PROVIDERS: ATTEND Internal Medicine Hematology & Oncology
DX: Z12.31 Encounter for screening mammogram for malignant neoplasm of breast (principal); N64.89 Other specified disorders of breast
CPT/HCPCS: 77063; 77067

== ENCOUNTER → 2019-06-06 | Outpatient (CLI) | payer MEDICARE, OTHER ==
[~2019-06-06] MED LIST changes: -DIGO250T PO; +DIGO250T3 PO; +POTA20TA4 PO; -POTA20TA82 PO
--- NOTE | 2019-06-07 08:21 | CARD ---
MR#: [id number] Date of Study: 06/06/2019 Ordering Physician: KIM GOLD, Referring Physician: KIM GOLD, Tech: Mary Beltran JUAN ALBERTO APPROVED REPORT EXAM: Two-dimensional and M-mode echocardiogram with Doppler and color Doppler. Other Information Quality : Good Rhythm : Atrial Fibrillation INDICATION Valvular Heart Disease 2D DIMENSIONS RVDd4.3 (2.9-3.5cm)Left Atrium(2D)5.4 (1.6-4.0cm) IVSd1.2 (0.7-1.1cm)Aortic Root(2D)2.7 (2.0-3.7cm) LVDd5.7 (3.9-5.9cm)LVOT Diameter2.2 (1.8-2.4cm) PWd1.3 (0.7-1.1cm)LVDs4.3 (2.5-4.0cm) FS (%) 17.0 %SV80.9 ml LVEF(%)35.0 (>50%) Aortic Valve AoV Peak Brendan.329.3cm/sAoV VTI70.0cm AO Peak GR.43.4mmHgLVOT Peak Brendan.156.9cm/s AO Mean GR.24mmHgAVA (VMAX)1.83cm2 KENDELL (VTI)1.40pa0XC P 1/2 Iohg112xo Mitral Valve MV E Pwzxxzbt788.7cm/sMV DECEL BABA527lq MV A Zgeenlij60.8cm/sE/A Ratio3.0 Tricuspid Valve TR P. Xkoervim808kd/sRAP XWCZGUWU25fdVy TR Peak Gr.99gcBoKRTN49ufGb Pulmonary Vein S1 Nnwnwkvp52.3cm/sD2 Xzovlxhj14.3cm/s LEFT VENTRICLE The left ventricle is normal size. There is mild concentric left ventricular hypertrophy. Left ventri harman systolic function is moderately to severely impaired. The Ejection Fraction is 30-35%. There is g lobal hypokinesis of the left ventricle. Septal motion suggestive of conduction defect. RIGHT VENTRICLE The right ventricle is moderately dilated. The right ventricular systolic function is normal. There i s a pacemaker lead in the right ventricle. ATRIA The left atrium is moderately dilated. The right atrium is moderately dilated. A pacemaker is seen in the right atrium consistent with history. The interatrial septum is intact with no evidence for an a trial septal defect or patent foramen ovale as noted on 2-D or Doppler imaging. AORTIC VALVE The aortic valve is calcified and displays decreased opening. Doppler and Color Flow revealed moderat e aortic regurgitation. Calculated aortic valve area is 1.9 cm2 with maximum pressure gradient of 44 mmHg and mean pressure gradient of 24 mmHg. Overall, this is consistent with moderate MITRAL VALVE The mitral valve is calcified with restricted posterior leaflet. There is no evidence of mitral valve prolapse. Doppler and Color-flow revealed moderate mitral regurgitation. TRICUSPID VALVE The tricuspid valve is normal in structure and function. Doppler and Color Flow revealed moderate to severe tricuspid regurgitation. There is severe pulmonary hypertension. The PA pressure was estimated at 76 mmHg. There is no tricuspid valve stenosis. PULMONIC VALVE Doppler and Color Flow revealed mild pulmonic valvular regurgitation. There is no pulmonic valvular s tenosis. GREAT VESSELS The aortic root is normal in size. The ascending aorta is normal in size. The IVC is dilated and mckenna apses <50% with inspiration. PERICARDIAL EFFUSION There is no evidence of significant pericardial effusion. Critical Notification Critical Value: No <Conclusion> Left ventricle systolic function is moderately to severely impaired. The Ejection Fraction is 30-35%. There is global hypokinesis of the left ventricle. Septal motion suggestive of conduction defect. The right ventricle is moderately dilated. There is a pacemaker lead in the right ventricle. Calculated aortic valve area is 1.9 cm2 with maximum pressure gradient of 44 mmHg and mean pressure g radient of 24 mmHg. Overall, this is consistent with moderate Doppler and Color-flow revealed moderate mitral regurgitation. Doppler and Color Flow revealed moderate to severe tricuspid regurgitation. There is severe pulmonary hypertension. The PA pressure was estimated at 76 mmHg. The IVC is dilated and collapses <50% with inspiration. Signed by : Kim Gold, Electronically Approved : 06/07/2019 08:20:57
== END ==
LOC: ECHO 12:48
PROVIDERS: ATTEND Internal Medicine Cardiovascular Disease
DX: I08.8 Other rheumatic multiple valve diseases (principal); I27.20 Pulmonary hypertension, unspecified; I11.0 Hypertensive heart disease with heart failure; I50.9 Heart failure, unspecified; E03.9 Hypothyroidism, unspecified; K58.9 Irritable bowel syndrome, unspecified
CPT/HCPCS: 93306

== ENCOUNTER 2019-07-01 07:11 | Day surgery (SDC) | payer MEDICARE, OTHER ==
[~2019-07-01] VITALS: Ht 152.4 cm; Wt 93.0 kg
[~2019-07-01 07:11] MED LIST changes: +HYDROmorphone 2 MG/ML VIAL IV PRN; +IV RINGERS,LACTATED 1000ML 1,000 ML IV SCH; +LIDOCAINE 1% PF 2 ML VIAL. ID PRN; +MORPHINE SULFATE 2 MG/ML VIAL. IV PRN; +ONDANSETRON PF 4 MG/2 ML VIAL. IV PRN; +PROCHLORPERAZINE 10 MG/2 ML VIAL. IV PRN; +fentaNYL PF VIAL 100 MCG/2 ML VIAL IV PRN
[2019-07-01] MEDS ORDERED: IODIXANOL 320 MG/ML 100 ML VIAL. ONE (07:31)
[2019-07-01] MEDS ORDERED: LIDOCAINE 1% Multi-Dose 20 ML VIAL. ONE (07:31)
[2019-07-01] MEDS ORDERED: HEPARIN for ARTERIAL LINE 1,500 ML ONE (07:32)
[2019-07-01 07:34] LABS: HEMATOCRIT 32.7 % (36.0-47.0); HEMOGLOBIN 10.4 g/dL (12.0-15.5); RED CELL DISTRIBUTION WIDTH 16.6 % (11.5-14.5); WHITE BLOOD COUNT 4.9 x10^3/uL (4.0-11.0)
[2019-07-01 07:46] LABS: CALCIUM 9.1 mg/dL (8.5-10.1); GFR 54.5; POTASSIUM 4.2 mmol/L (3.5-5.1)
[2019-07-01 07:48] LABS: PROTHROMBIN TIME PATIENT 15.7 SEC (11.7-14.0)
[2019-07-01 08:10] VITALS: BP 159/83
[2019-07-01] MEDS ORDERED: FOLI0.8C PO (08:49)
[2019-07-01] MEDS ORDERED: CHOL400T6 PO (08:49)
[2019-07-01] MEDS ORDERED: ASCO500C PO (08:49)
[2019-07-01] MEDS ORDERED: FLUT1DIS3 IH (08:49)
[2019-07-01] MEDS ORDERED: OXYM30SP25 NS (08:49)
[2019-07-01] MEDS ORDERED: VITA1TAB60 PO (08:49)
[2019-07-01] MEDS ORDERED: FERR-36 PO (08:49)
[2019-07-01] MEDS ORDERED: VERAPAMIL 5 MG/2 ML VIAL. ONE (08:50)
[2019-07-01] MEDS ORDERED: MIDAZOLAM HCL/PF 2 MG/2 ML VIAL. ONE (08:50)
[2019-07-01] MEDS ORDERED: fentaNYL PF VIAL 100 MCG/2 ML VIAL ONE (08:50)
[2019-07-01] MEDS ORDERED: HEPARIN for IV BOLUS 10,000 UNIT/10 ML VIAL. ONE (08:50)
[2019-07-01] MEDS ORDERED: NITROGLYCERIN 200 MCG/2 ML SYRINGE FOR CATH/VASC LAB. ONE (08:50)
--- NOTE | 2019-07-01 08:52 | PDOC ---
MODERATE SEDATION ASSESSMENT RISKS/ALTERNATIVES Risks/Alternatives Risks and alternatives of this type of sedation and procedure discussed with: RISK/ALTERNATIVES: Patient H & P ON CHART H & P H & P on chart and reviewed for co-morbid conditions and appropriate labs. H&P ON CHART: Yes STATUS PREG STATUS ASSESSED: N/A MEDS/ALLERGIES REVIEWED Meds/Allergies Reviewed Medications and Allergies including time and route of recently administered narcotics and sedatives. MEDS/ALLERGIES REVIEWED: Yes ASA RATING ASA RATING: III AIRWAY ASSESSMENT Airway Assessment Airway patency, oral function limitations, presence of caps, crowns, dentures, partials, and ability to extend neck assessed. AIRWAY ASSESSMENT: Yes MALLAMPATI SCORE MALLAMPATI SCORE: II PRE-SEDATION ASSESSMENT PRE-SEDATION ASSESSMENT: Yes KIM GOLD MD Jul 01, 2019 08:52
[2019-07-01] MEDS ORDERED: IODIXANOL 320 MG/ML 100 ML VIAL. IART ONE (09:15)
[2019-07-01] MEDS ORDERED: LIDOCAINE 1% PF 2 ML VIAL. INJ ONE (09:15)
[2019-07-01] MEDS ORDERED: VERAPAMIL 5 MG/2 ML VIAL. IART ONE (09:15)
[2019-07-01] MEDS ORDERED: CONTRAST GIVEN. MC PRN (09:15)
[2019-07-01] MEDS ORDERED: MIDAZOLAM HCL/PF 2 MG/2 ML VIAL. IV ONE (09:15)
[2019-07-01] MEDS ORDERED: fentaNYL PF VIAL 100 MCG/2 ML VIAL IV ONE (09:15)
[2019-07-01] MEDS ORDERED: NITROGLYCERIN 200 MCG/2 ML SYRINGE FOR CATH/VASC LAB. IART ONE (09:15)
[2019-07-01] MEDS ORDERED: HEPARIN for IV BOLUS 10,000 UNIT/10 ML VIAL. IART ONE (09:15)
[2019-07-01] MEDS ORDERED: PROPOFOL 20 ML IV ONE (09:26)
[2019-07-01 09:56] VITALS: BP 141/69
--- NOTE | 2019-07-01 10:37 | CARD ---
MR#: [id number] Date of Study: 07/01/2019 Ordering Physician: KIM GOLD, Referring Physician: KIM GOLD, Tech: MEGAN TOMPKINS RTR APPROVED REPORT Technologist: MEGAN TOMPKINS RTR Nurse: MATTHEW ALVARENGA RN Procedure(s) performed: MODERATE SEDATION TIME: 34 MIN FLUORO TIME: 6.6 MIN DOSE: 53.7 GYCM2 CONTRAST: 65 CC VISI LHC, Coronary angiography HISTORY The patient is a 73 year-old female with a history of : hypertension, dyslipidemia. INDICATION The indication(s) include : dyspnea, valvular heart disease. [facility] Clinical Frailty Scale [facility] Clinical Frailty Scale: Severely Frail Heart Failure Heart Failure: Yes If Yes, Newly Diagnosed: No If Yes, HF Type: Diastolic If Yes, NYHA Class: Class II PROCEDURE NARRATIVE INFORMED CONSENT: After explaining the risks and benefits of the procedure and alternatives, informed consent was obtained. The patient was brought electively to the cardiac catheterization lab. A timeout was performed confi rming the patient's name, date of , procedure, and site of procedure. All necessary personnel w ere wearing the appropriate protective equipment and radiation monitor devices. (See nursing notes for medications administered). ACCESS: The right wrist was sterilely prepped and draped in the usual fashion. The right wrist was infiltrat ed with 1 mL of 2% lidocaine for subcutaneous anesthesia. A 6 Tajik Terumo glide sheath was inserte d into the right radial artery without difficulty. CORONARY ANGIOGRAPHY: Right and left coronary angiography was performed using a 5Fr TIG 4.0 catheter and a 5Fr JR4 cathete r. Left ventricular end diastolic pressure was obtained with a TIG catheter and pullback was perform ed. All catheter exchanges and advancements were performed over a guidewire. CLOSURE: At case completion the right radial sheath was removed and a Terumo radial band was applied with 13 m l of air. COMPLICATIONS: The patient tolerated the procedure well and there were no immediate complications. FINDINGS: HEMODYNAMICS: LVEDP 22 mm Hg 25 mm Hg peak to peak gradient on pullback from the LV to aorta. AO: 128/78 LEFT VENTRICULOGRAM: Deferred due to renal insufficiency. CORONARY ANGIOGRAPHY: LM is a large caliber vessel with normal angiographic appearance. LAD is a large caliber vessel with normal angiographic appearance. D1 is a moderate caliber vessel with normal angiographic apeparance. LCx is a moderate caliber non-dominant vessel with a mid 20% stenosis. OM1 is a moderate caliber vessel with normal angiographic appearance. RCA is a large caliber dominant vessel with normal angiographic appearance. RPDA and RPL are moderate caliber vessels with normal angiographic appearance. Conclusion 1. Elevated left sided filling pressures. (LVEDP 22 mm Hg) 2. No significant coronary disease. Recommendations Aggressive Medical Therapy Signed by : Kim Gold, Electronically Approved : 07/01/2019 10:37:21
[2019-07-01] MEDS ORDERED: IV NORMAL SALINE 1000ML BAG 1,000 ML IV ONE (11:15)
[2019-07-01 13:15] VITALS: BP 136/37
--- NOTE | 2019-07-01 13:21 | CARD ---
MR#: [id number] Date of Study: 07/01/2019 Ordering Physician: KIM GOLD, Referring Physician: KIM GOLD Tech: Ginny Carlin RDCS APPROVED REPORT EXAM: Transesophageal echocardiogram with color flow Doppler. INDICATION Arrhythmia Dyspnea Reason For Test : Evaluate valvular disease. PROCEDURE After obtaining informed consent, patient underwent transesophageal echo in the [employer] Qualified. Type of Sedation : General Anesthesia Transesophageal probe was inserted and advanced into esophagus by Brian Gold MD. The BING was performed without complications. Throughout the procedure, the blood pressure, pulse oximetry, cardiac rhythm, and rate were monitored . The patient tolerated the procedure without adverse effects. Recovery from general anesthesia was une ventful and vital signs were stable. LEFT VENTRICLE The left ventricle is normal size. There is mild concentric left ventricular hypertrophy. The systoli c function is moderately impaired. The Ejection Fraction is 30-35%. There is global hypokinesis of th e left ventricle. No left ventricle thrombus noted on this study. There is no ventricular septal defe ct visualized. RIGHT VENTRICLE The right ventricle is normal size. There is normal right ventricular wall thickness. RV Systolic fun ction is mildly reduced. ATRIA The left atrium is moderately dilated. The right atrium is severely dilated. The interatrial septum i s intact with no evidence for an atrial septal defect or patent foramen ovale as noted on 2-D or Dopp ler imaging. AORTIC VALVE The aortic valve is trileaflet. The aortic valve is moderately calcified. Doppler and Color Flow reve aled trace to mild aortic regurgitation. There is mild to moderate valvular aortic stenosis. MG 20 mm Hg. MITRAL VALVE Mitral annular calcification is moderate. There is no evidence of mitral valve prolapse. There is no mitral valve stenosis. Doppler and Color-flow revealed moderate mitral regurgitation. TRICUSPID VALVE The tricuspid valve leaflets are thickened and calcified, but open well. Doppler and Color Flow revea led moderate to severe tricuspid regurgitation. RVSP of 50 mm Hg. There is no tricuspid valve prolaps e or vegetation. There is no tricuspid valve stenosis. PULMONIC VALVE The pulmonary valve is normal in structure and function. Doppler and Color Flow revealed no pulmonic valvular regurgitation. There is no pulmonic valvular stenosis. GREAT VESSELS The aortic root is normal in size. Normal left lower pulmonary vein. No significant pulmonary vein fl ow reversal. The IVC is normal in size and collapses >50% with inspiration. PERICARDIAL EFFUSION There is no pleural effusion. Critical Notification Critical Value: No <Conclusion> The systolic function is moderately impaired. The Ejection Fraction is 30-35%. There is global hypokinesis of the left ventricle. The right atrium is severely dilated. The left atrium is moderately dilated. There is mild to moderate valvular aortic stenosis. MG 20 mm Hg. Doppler and Color-flow revealed moderate mitral regurgitation. Doppler and Color Flow revealed moderate to severe tricuspid regurgitation. RVSP of 50 mm Hg. Signed by : Kim Gold, Electronically Approved : 07/01/2019 13:21:29
== END 2019-07-01 14:15 | disposition home or self-care (01) ==
LOC: CCL 07:11
PROVIDERS: ATTEND Internal Medicine Cardiovascular Disease
DX: R06.00 Dyspnea, unspecified (principal); I25.10 Atherosclerotic heart disease of native coronary artery without angina pectoris; I08.1 Rheumatic disorders of both mitral and tricuspid valves; E78.5 Hyperlipidemia, unspecified; I11.9 Hypertensive heart disease without heart failure
CPT/HCPCS: 36415; 80048; 85027; 85610; 93312; 93320; 93325; 93458; 99152; 99153; C1769; C1892; J1644; J2250; J2704; J3010; J3490; J7030; Q9967

== ENCOUNTER → 2019-08-27 | Outpatient (CLI) | payer MEDICARE, OTHER ==
[~2019-08-27] MED LIST changes: +ASCO500C PO; +CHOL400T6 PO; +FERR-36 PO; +FLUT1DIS3 IH; +FOLI0.8C PO; -HYDROmorphone 2 MG/ML VIAL IV PRN; -IV RINGERS,LACTATED 1000ML 1,000 ML IV SCH; -LIDOCAINE 1% PF 2 ML VIAL. ID PRN; -MORPHINE SULFATE 2 MG/ML VIAL. IV PRN; -ONDANSETRON PF 4 MG/2 ML VIAL. IV PRN; +OXYM30SP25 NS; -PROCHLORPERAZINE 10 MG/2 ML VIAL. IV PRN; +VITA1TAB60 PO; -fentaNYL PF VIAL 100 MCG/2 ML VIAL IV PRN
[2019-08-27 09:55] LABS: CALCIUM 9.1 mg/dL (8.5-10.1); CREATININE 0.9 mg/dL (0.6-1.0); GFR 61.5; POTASSIUM 4.3 mmol/L (3.5-5.1)
== END | disposition home or self-care (01) ==
LOC: LAB 09:13
PROVIDERS: ATTEND Internal Medicine Cardiovascular Disease
DX: I42.8 Other cardiomyopathies (principal)
CPT/HCPCS: 36415; 80048; 83880

== ENCOUNTER → 2019-11-12 | Outpatient (CLI) | payer MEDICARE, OTHER ==
--- NOTE | 2019-11-12 13:55 | RAD ---
EXAM: CT OF THE CHEST WITHOUT CONTRAST. HISTORY: Lung nodule. TECHNIQUE: Computed tomography of the chest was performed without intravenous contrast. One or more of the following individualized dose reduction techniques were utilized for this examination: 1. Automated exposure control. 2. Adjustment of the mA and/or kV according to patient size. 3. Use of iterative reconstruction technique. COMPARISON: 09/21/2018. FINDINGS: Images of the upper abdomen reveal no acute abnormality. Bone windows reveal no suspicious lesions. There are no pathologically enlarged mediastinal or axillary lymph nodes. There is no pleural or pericardial effusion. The heart is moderately to severely enlarged. There are calcifications of the coronary arteries and aortic valve. The main pulmonary artery measures 4.5 cm. A 5 mm groundglass nodule on image 55 in the left upper lobe appears new and is likely inflammatory. Other tiny nodules in the left upper lobe measures 3 mm or less. An uncalcified nodule in the right lower lobe on image 153 is stable and measures 5 mm. Mild septal line thickening is consistent with trace pulmonary edema. IMPRESSION: 1. A 5 mm groundglass nodule in the left upper lobe on image T5 is new but likely inflammatory. This could be followed in 6-12 months. 2. Other nodules measuring 5 mm or less are stable and likely benign. 3. Moderate to severe cardiomegaly with evidence of pulmonary arterial hypertension. Trace pulmonary edema. Electronically signed by: Jadyn Rodriguez MD (11/12/2019 1:52 PM) [id number]
== END | disposition home or self-care (01) ==
LOC: CT 12:30
PROVIDERS: ATTEND Internal Medicine Critical Care Medicine
DX: R91.8 Other nonspecific abnormal finding of lung field (principal); I27.21 Secondary pulmonary arterial hypertension; I11.9 Hypertensive heart disease without heart failure; I25.10 Atherosclerotic heart disease of native coronary artery without angina pectoris; J45.909 Unspecified asthma, uncomplicated; Z95.0 Presence of cardiac pacemaker
CPT/HCPCS: 71250

== ENCOUNTER 2020-02-10 18:11 | Emergency (ER) | payer MEDICARE, OTHER ==
[~2020-02-10] VITALS: Ht 152.4 cm; Wt 86.4 kg
[~2020-02-10 18:11] MED LIST changes: +MULT-445 PO; -MULT1TAB52 PO; -WARF-78 PO; +WARF2.5T2 PO; -WARF2.5T83 PO; +WARF5TAB2 PO
[2020-02-10] MEDS ORDERED: dilTIAZem IV PUSH 25 MG/5 ML VIAL IVP ONE (18:45)
--- NOTE | 2020-02-10 18:52 | PHYS DOC ---
Past Medical History Past Medical History: A-Fib, Anemia, Asthma, Pneumonia, Sinusitis Additional Past Medical Histor: AUTO-IMMUNE DISORDER, LUPUS FACTOR, CARDIO-PULM HTN, PACEMAKER,HERNIA,HEART Past Surgical History: Cholecystectomy, Hysterectomy, Other Additional Past Surgical Histo: HERNIA REPAIR Smoking Status: Never Smoker Alcohol Use: None Drug Use: None General Adult EDM: Chief Complaint: NOSEBLEED HPI: HPI: Patient is a 74 year old female who presents with bleeding in her mouth that began about an 30 minutes prior to arrival. Patient is on Coumadin for atrial fibrillation and had aortic valve replacement approximately a month ago. Patient denies any recent illnesses no fevers cough but states that when she is clearing her throat she spat up blood. And she has been spitting up blood every 4 to 5 minutes. Patient states it does not feel it is coming from her nose rather coming from her sinuses. Patient denies any shortness of breath but is very anxious. Review of Systems: Review of Systems: Constitutional: Denies fever or chills. [] Eyes: Denies change in visual acuity. [] HENT: Complains of blood from her mouth Respiratory: Denies cough or shortness of breath. [] Cardiovascular: Denies chest pain or edema. [] GI: Denies abdominal pain, nausea, vomiting, bloody stools or diarrhea. [] : Denies dysuria. [] Musculoskeletal: Denies back pain or joint pain. [] Integument: Denies rash. [] Neurologic: Denies headache, focal weakness or sensory changes. [] Endocrine: Denies polyuria or polydipsia. [] Lymphatic: Denies swollen glands. [] Psychiatric: Denies depression or anxiety. [] Heart Score: Risk Factors: Risk Factors: DM, Current or recent (<one month) smoker, HTN, HLP, family history of CAD, obesity. Risk Scores: Score 0 - 3: 2.5% MACE over next 6 weeks - Discharge Home Score 4 - 6: 20.3% MACE over next 6 weeks - Admit for Clinical Observation Score 7 - 10: 72.7% MACE over next 6 weeks - Early Invasive Strategies Current Medications: Current Medications Medications (Trade) Dose Ordered Sig/Carlie Start Time Stop Time Status Last Admin Dose Admin Diltiazem HCl (Cardizem Iv Push) 15 mg 1X ONCE 02/10/20 18:45 02/10/20 18:47 DC Allergies: Allergies: Allergies Coded Allergies Type Severity Reaction Last Updated Verified SAI Inhibitors Allergy Intermediate 06/07/17 Yes NSAIDS (Non-Steroidal Anti-Inflamma Allergy Intermediate 06/07/17 Yes Penicillins Allergy Intermediate 06/07/17 Yes Sulfa (Sulfonamide Antibiotics) Allergy Intermediate 06/07/17 Yes lisinopril Allergy Intermediate 06/07/17 Yes Physical Exam: PE: Constitutional: Well developed, well nourished, anxious HENT: Normocephalic, atraumatic blood in oropharynx. No active bleeding seen from the naris. Eyes: PERRLA, EOMI, conjunctiva normal, no discharge. [] Neck: Normal range of motion, no tenderness, supple, no stridor. [] Cardiovascular: Tachycardia irregularly irregular peripheral pulses intact mechanical heart sounds Lungs & Thorax: Bilateral breath sounds clear to auscultation [] Abdomen: Bowel sounds normal, soft, no tenderness, no masses, no pulsatile masses. [] Skin: Warm, dry, no erythema, no rash. [] Back: No tenderness, no CVA tenderness. [] Extremities: No tenderness, no cyanosis, no clubbing, ROM intact, no edema. [] Neurologic: Alert and oriented X 3, normal motor function, normal sensory function, no focal deficits noted. [] Psychologic: Affect normal, judgement normal, mood normal. [] Current Patient Data: Labs: Laboratory Tests Test 02/10/20 19:05 White Blood Count 4.9 x10^3/uL Red Blood Count 3.60 x10^6/uL Hemoglobin 10.3 g/dL Hematocrit 30.8 % Mean Corpuscular Volume 86 fL Mean Corpuscular Hemoglobin 29 pg Mean Corpuscular Hemoglobin Concent 34 g/dL Red Cell Distribution Width 20.4 % Platelet Count 176 x10^3/uL Neutrophils (%) (Auto) 56 % Lymphocytes (%) (Auto) 28 % Monocytes (%) (Auto) 10 % Eosinophils (%) (Auto) 5 % Basophils (%) (Auto) 1 % Neutrophils # (Auto) 2.7 x10^3/uL Lymphocytes # (Auto) 1.4 x10^3/uL Monocytes # (Auto) 0.5 x10^3/uL Eosinophils # (Auto) 0.2 x10^3/uL Basophils # (Auto) 0.0 x10^3/uL Platelet Estimate Adequate Polychromasia Slight Poikilocytosis Slight Basophilic Stippling Present Anisocytosis Mod Spherocytes Few Target Cells Tear Drop Cells Occ Ovalocytes Mod Prothrombin Time 27.7 SEC Prothromb Time International Ratio 2.6 Sodium Level 143 mmol/L Potassium Level 4.2 mmol/L Chloride Level 107 mmol/L Carbon Dioxide Level 25 mmol/L Anion Gap 11 Blood Urea Nitrogen 36 mg/dL Creatinine 1.2 mg/dL Estimated GFR (Cockcroft-Gault) 44.0 Glucose Level 105 mg/dL Calcium Level 8.8 mg/dL Current Medications Medications (Trade) Dose Ordered Sig/Carlie Route PRN Reason Start Time Stop Time Status Last Admin Dose Admin Diltiazem HCl (Cardizem Iv Push) 15 mg 1X ONCE IVP 02/10/20 18:45 02/10/20 18:55 DC Oxymetazoline HCl (Afrin) 2 spray 1X ONCE NS 02/10/20 20:00 02/10/20 20:01 DC 02/10/20 20:06 Tranexamic Acid (Cyklokapron) 1,000 mg 1X ONCE TOP 02/10/20 20:00 02/10/20 20:01 DC 02/10/20 20:06 Vital Signs: Vital Signs Date Time Temp Pulse Resp B/P (MAP) Pulse Ox O2 Delivery O2 Flow Rate FiO2 02/10/20 20:39 94 20 99 02/10/20 20:09 103 15 100 02/10/20 19:39 92 18 99 02/10/20 19:09 104 18 99 02/10/20 19:07 104 100 02/10/20 18:35 98.4 131 14 131/27 (61) 98 Room Air 98.4 EKG: EKG: [] Radiology/Procedures: Radiology/Procedures: [] Course & Med Decision Making: Course & Med Decision Making Pertinent Labs and Imaging studies reviewed. (See chart for details) [] Reassessed at 8:32 PM bleeding has been stopped. Patient much better after Afrin and gargling TXA. 74-year-old female on Coumadin presents with bleeding somewhere in the pharyngeal area. There is no active bleeding in the nose there was some bleeding in the mouth noted but I cannot see where it is coming from. Patient has bleeding controlled after Afrin and TXA. INR is in the therapeutic range. Dragon Disclaimer: Dragon Disclaimer: This electronic medical record was generated, in whole or in part, using a voice recognition dictation system. Departure Departure Impression: Primary Impression: Oral bleeding Disposition: 01 HOME, SELF-CARE Condition: STABLE Referrals: BECKY MEJIA MD (PCP) 2-3 DAYS Patient Instructions: Nosebleed Additional Instructions: EMERGENCY DEPARTMENT GENERAL DISCHARGE INSTRUCTIONS THANK YOU for coming to [facility] Emergency Department (ED) today and trusting us with your care. We trust that you had a positive experience in our Emergency Department. If you wish to speak to the department Management you can contact the roving department end finder at . YOUR FOLLOW UP INSTRUCTIONS ARE FOLLOWS: Do you have a private doctor? If you do not have a private doctor, please ask for a resource list of physicians or clinics that may be able to assist you with follow up care. The Emergency Physician has interpreted your x-rays. The X-ray specialist will also review them. If there is a change in the findings you will be notified in 48 hours when at all possible. A lab test or lab culture may have been done, your results will be reviewed and you will be notified if you need a change in treatment. ADDITIONAL INSTRUCTIONS AND INFORMATION Your care today has been supervised by a physician who is specially trained in emergency care. Many problems require more than one evaluation for a complete diagnosis and treatment. We recommend that you schedule your follow up appointment as recommended to ensure complete treatment of your illness or injury. If you are unable to obtain follow up care and continue to have a problem, or if your condition worsens we recommend that you return to the ED. We are not able to safely determine your condition over the phone nor are we able to give sound medical advice over the phone. For these safety reasons, if you call for medical advice we will ask you to come to the ED for further evaluation If you have any questions regarding these discharge instructions please call the ED at . SAFETY INFORMATION In the interest of safety, wellness, and injury prevention; we encourage you to wear your seatbelt, if you smoke; quit smoking, and we encourage your family to use protective helmet for bicycling and other sporting events that present an increased risk for head injury. IF YOUR SYMPTOMS WORSEN OR NEW SYMPTOMS DEVELOP, OR YOU HAVE CONCERNS ABOUT YOUR CONDITION; OR IF YOUR CONDITION WORSENS WHILE YOU ARE WAITING FOR YOUR FOLLOW UP APPOINTMENT; EITHER CONTACT YOUR PRIMARY CARE DOCTOR, THE PHYSICIAN WHOSE NAME AND NUMBER YOU WERE GIVEN, OR RETURN TO THE ED IMMEDIATELY. Justicifation of Admission Dx: Justifications for Admission: Justification of Admission Dx: N/A BRANDY RACHEL MD Feb 10, 2020 18:52
[2020-02-10 19:20] LABS: BASO % 1 % (0-3); EOS # 0.2 x10^3/uL (0.0-0.7); EOS % 5 % (0-3); HEMATOCRIT 30.8 % (36.0-47.0); HEMOGLOBIN 10.3 g/dL (12.0-15.5); LYMPH # 1.4 x10^3/uL (1.0-4.8); LYMPH % 28 % (24-48); MEAN CORPUSCULAR HEMOGLOBIN 29 pg (25-35); MEAN CORPUSCULAR HGB CONC 34 g/dL (31-37); MEAN CORPUSCULAR VOLUME 86 fL (79-100); MONO # 0.5 x10^3/uL (0.0-1.1); MONO % 10 % (0-9); NEUT # 2.7 x10^3/uL (1.8-7.7); NEUT % 56 % (31-73); PLATELET COUNT 176 x10^3/uL (140-400); RED CELL DISTRIBUTION WIDTH 20.4 % (11.5-14.5); WHITE BLOOD COUNT 4.9 x10^3/uL (4.0-11.0)
[2020-02-10 19:29] LABS: CALCIUM 8.8 mg/dL (8.5-10.1); CREATININE 1.2 mg/dL (0.6-1.0); POTASSIUM 4.2 mmol/L (3.5-5.1)
[2020-02-10 19:30] LABS: PROTHROMBIN TIME PATIENT 27.7 SEC (11.7-14.0)
[2020-02-10 19:45] LABS: PLT ESTIMATE ADEQUATE (ADEQUATE)
[2020-02-10 19:46] LABS: ANISOCYTOSIS MOD; OVALOCYTES MOD; POIKILOCYTOSIS SLIGHT; POLYCHROMASIA SLIGHT; TEAR DROP CELLS OCC
[2020-02-10 19:48] LABS: SPHEROCYTES FEW
[2020-02-10] MEDS ORDERED: TRANEXAMIC ACID 1,000 MG/10 ML VIAL. TOP ONE (20:00)
[2020-02-10] MEDS ORDERED: OXYMETAZOLINE 0.05% NASAL SPRAY 30ML BOTTLE. NS ONE (20:00)
[2020-02-10 20:39] VITALS: BP 124/76
--- NOTE | 2020-02-11 04:44 | EKG ---
[facility] [address] [place] [address] Test Date: 2020-02-10 Test Time: 18:51:52 Pat Name: MIGUEL ANGEL OLMOS Department: Room: Gender: F Artist'S Model: : 1945 Requested By: BRANDY RACHEL Order Number: [id number] Reading MD: Measurements Intervals [place] Rate: 103 P: [place]: QRS: 24 QRSD: 84 T: 36 QT: 322 QTc: 424 Interpretive Statements IRREGULAR RHYTHM, NO P-WAVE FOUND VENTRICULAR PREMATURE COMPLEX(ES) ABNORMAL ECG RI6.01 No previous ECG available for comparison
== END 2020-02-10 21:08 | disposition home or self-care (01) ==
LOC: ER 18:11
DX: R04.1 Hemorrhage from throat (principal); J45.909 Unspecified asthma, uncomplicated; I48.91 Unspecified atrial fibrillation; I27.20 Pulmonary hypertension, unspecified; M32.9 Systemic lupus erythematosus, unspecified; Z95.0 Presence of cardiac pacemaker; Z79.01 Long term (current) use of anticoagulants; Z88.0 Allergy status to penicillin; Z88.2 Allergy status to sulfonamides; Z88.6 Allergy status to analgesic agent; Z88.8 Allergy status to other drugs, medicaments and biological substances
CPT/HCPCS: 36415; 80048; 85025; 85610; 86850; 86900; 86901; 93005; 99285; J3490

== ENCOUNTER → 2020-06-30 | Outpatient (CLI) | payer MEDICARE, OTHER ==
[~2020-06-30] MED LIST changes: +AMLO-187 PO; -AMLO10TA8 PO
[2020-06-30 11:01] LABS: BASO % 1 % (0-3); EOS # 0.2 x10^3/uL (0.0-0.7); EOS % 4 % (0-3); HEMATOCRIT 28.8 % (36.0-47.0); HEMOGLOBIN 9.5 g/dL (12.0-15.5); LYMPH # 0.7 x10^3/uL (1.0-4.8); LYMPH % 20 % (24-48); MEAN CORPUSCULAR HEMOGLOBIN 29 pg (25-35); MEAN CORPUSCULAR HGB CONC 33 g/dL (31-37); MEAN CORPUSCULAR VOLUME 87 fL (79-100); MONO # 0.3 x10^3/uL (0.0-1.1); MONO % 9 % (0-9); NEUT # 2.4 x10^3/uL (1.8-7.7); NEUT % 66 % (31-73); PLATELET COUNT 96 x10^3/uL (140-400); WHITE BLOOD COUNT 3.6 x10^3/uL (4.0-11.0)
[2020-06-30 11:20] LABS: PROTHROMBIN TIME PATIENT 18.9 SEC (11.7-14.0)
== END ==
LOC: LAB 10:10
PROVIDERS: ATTEND Internal Medicine Cardiovascular Disease
DX: I42.9 Cardiomyopathy, unspecified (principal); Z95.810 Presence of automatic (implantable) cardiac defibrillator; I48.20 Chronic atrial fibrillation, unspecified; I50.22 Chronic systolic (congestive) heart failure
CPT/HCPCS: 36415; 85025; 85610

== ENCOUNTER → 2020-12-04 | Outpatient (CLI) | payer MEDICARE, OTHER ==
--- NOTE | 2020-12-04 11:02 | RAD ---
PQRS Compliance Statement: One or more of the following individualized dose reduction techniques were utilized for this examinat ion: 1. Automated exposure control 2. Adjustment of the mA and/or kV according to patient size 3. Use of iterative reconstruction technique CT THORAX WO 12/04/2020 9:27 AM Indication: Lung nodule COMPARISON: CT chest 11/12/2019 TECHNIQUE: Multiple axial CT images of the chest were obtained without intravenous contrast. Coronal and sagittal reformats are provided. FINDINGS: There is a 3 mm solid noncalcified pulmonary nodule in the left upper lobe (series 3, image 49) stabl e. There is a 3 mm solid noncalcified pulmonary nodule in the lingula (series 3, image 92) which is s table. There is a 4 mm solid noncalcified pulmonary nodule in the right lower lobe (series 3, image 1 46), stable. Subpleural groundglass nodular opacity previously seen in the subpleural left upper lobe represent an area of scarring, stable. No new or enlarging solid noncalcified pulmonary nodules. No pleural effusions, pulmonary vascular congestion or pneumothorax. Left chest wall cardiac device is i dentified with leads terminating in the right ventricle. Aortic valvular prosthesis is present. Three -vessel coronary artery vascular calcific effusions are present. Tracheal bronchial calcifications ar e present. Cardiomegaly. No pericardial effusion. Thoracic aorta is normal in course and caliber with moderate calcified atheromatous plaque. Visualized portions of the upper abdomen appear stable. No s uspicious osseous lesion. IMPRESSION: Stable solid noncalcified pulmonary nodules without significant change dating back to 09/21/2018. 5 mm groundglass nodule in the subpleural left anterior upper lobe is stable with more linear morphology suggestive of scarring. Electronically signed by: Vanna Marquez MD (12/04/2020 10:59 AM) [id number]
== END ==
LOC: CT 09:21
PROVIDERS: ATTEND Internal Medicine Critical Care Medicine
DX: R91.1 Solitary pulmonary nodule (principal); I51.7 Cardiomegaly
CPT/HCPCS: 71250

== ENCOUNTER → 2021-09-07 | Outpatient (CLI) | payer MEDICARE, OTHER ==
--- NOTE | 2021-09-07 14:57 | RAD ---
AP and Lateral Views of the Chest 09/07/2021 1:27 PM Indication: LUNG NODULE Comparison: Chest CT December 04, 2020 Findings: The 3 and 4 mm pulmonary described on prior chest CT are radiographically occult. Prior aor tic valve repair noted. The heart is enlarged. Pulmonary arteries are prominent. No pneumothorax or d efinitive effusion is seen. There is a single lead ICD device from a left subclavian approach. No foc al infiltrates are identified. No acute osseous changes are identified. IMPRESSION: 1. No evidence of acute cardiopulmonary process is identified 2. Cardiomegaly and prominence of the pulmonary arteries noted 3. 3 and 4 mm pulmonary nodules described on prior chest CT are radiographically occult Electronically signed by: Calvin Nguyen MD (09/07/2021 2:55 PM) [id number]
== END ==
LOC: RAD 13:04
PROVIDERS: ATTEND Internal Medicine Critical Care Medicine
DX: I51.7 Cardiomegaly (principal); R91.8 Other nonspecific abnormal finding of lung field; Z95.810 Presence of automatic (implantable) cardiac defibrillator
CPT/HCPCS: 71046